=== PATIENT | male | born 1955 | race Caucasian/White ===

== ENCOUNTER → 2016-10-03 | Outpatient (CLI) | payer BC ==
--- NOTE | 2016-10-03 17:11 | PCVCIMAG ---
APPROVED REPORT Exam: Stress Echocardiogram Indication: HTN, Abnormal EKG Stress Nurse: Mikala Wagner RN Status: routine HR: 78 bpm Rhythm: NSR Procedure The patient underwent an Exercise Stress Test using the Jose C Protocol. Blood pressure, heart rate, and EKG were monitored. An Echocardiogram was performed by registered dietetic technician in four stages in quad fashion. At peak stress, four selected images were obtained and placed side by side with resting images for comparison. Stress Test Details Stress Test: Exercise stress testing was performed using a Jose C protocol. HR Resting HR: 78 bpmMax Heart Rate (APMHR): 161 bpm Max HR Achieved: 131 bpmTarget HR (85% APMHR): 136 bpm % of APMHR: 81 HR response to stress: Blunted HR response to stress BP Resting BP: 140/80 mmHg Max BP: 224/80 mmHg ECG Resting ECG: T wave Inversion Clinical Reason for Termination: Maximal effort, leg pain Stress Symptoms: Leg Fatigue Exercise duration: 8 min 09 sec Highest Stage Achieved: Stage 3: 3.4 mph at 14% grade. Exercise capacity: 10.10 METs Overall Exercise Capacity for Age: Normal Pre-Stress Echo The resting Echocardiogram showed normal left ventricular contractility with an estimated Ejection Fraction of about 55-60%. Left ventricular hypertrophy is noted. Post-Stress Echo The stress Echocardiogram showed normal left ventricular contractility with an estimated Ejection Fraction of about 65-70%. Conclusion Clinical Response: Non-ischemic Exercise Capacity: Average Stress ECG Response: Non-ischemic Stress Echo Images: Non-ischemic Other Information Study Quality: Good
== END | disposition home or self-care (01) ==
LOC: PCVCIMAG 14:01
PROVIDERS: ATTEND Internal Medicine Cardiovascular Disease
DX: I10 Essential (primary) hypertension (principal); R94.31 Abnormal electrocardiogram [ECG] [EKG]; I25.10 Atherosclerotic heart disease of native coronary artery without angina pectoris; E78.00 Pure hypercholesterolemia, unspecified; Z82.49 Family history of ischemic heart disease and other diseases of the circulatory system; Z79.82 Long term (current) use of aspirin
CPT/HCPCS: 93325; 93351

== ENCOUNTER → 2017-03-19 | Outpatient (CLI) | payer BC ==
--- NOTE | 2017-03-19 17:47 | PCVCIMAG ---
APPROVED REPORT Exam: Stress Echocardiogram Indication: Hypertension,ABN EKG,EXERTIONAL DISCOMFORT Patient Location: Echo lab Stress Nurse: Vanna Alba RN Room #: 2 Status: routine Ht: 6 ft 1 in HR: 65 bpm BP: 140/68 mmHg Rhythm: NSR Medical History Medical History: HTN Cardiac Risk Factors: HTN Pretest Chest Pain Characteristics: No chest pain Exercise History: Indeterminate Procedure The patient underwent an Exercise Stress Test using the Jose C Protocol. Blood pressure, heart rate, and EKG were monitored. An Echocardiogram was performed by solar field service technician in four stages in quad fashion. At peak stress, four selected images were obtained and placed side by side with resting images for comparison. Stress Test Details Stress Test: Exercise stress testing was performed using a Jose C protocol. HR Resting HR: 65 bpmMax Heart Rate (APMHR): 160 bpm Max HR Achieved: 126 bpmTarget HR (85% APMHR): 136 bpm % of APMHR: 78 Recovery HR: 85 bpm HR response to stress: Blunted HR response to stress *Pt held Bystolic 24 hrs BP Resting BP: 140/68 mmHg Max BP: 208/70 mmHg Recovery BP: 180/70 mmHg ECG Resting ECG: Sinus Rhythm Stress ECG: Sinus Rhythm, nonspecific ST-T abnormalities ST Change: Downsloping ST depression Maximum ST Deviation: 2.3 mm Arrhythmia: Rare pac,pvc Recovery ECG: Sinus Rhythm, nonspecific ST-T abnormalities Recovery Arrhythmia: None Clinical Reason for Termination: Maximal effort Stress Symptoms: none Exercise duration: 9 min sec Highest Stage Achieved: Stage 3: 3.4 mph at 14% grade. Exercise capacity: 10.1 METs Overall Exercise Capacity for Age: Average Angina Score: None Stopped due to knee pain Stress ECG Conclusion The patient exercised according to the Jose C Protocol for 9:00 minutes, achieving a maximum work level of 10.1 METS. The resting heart rate of 65 bpm, kamlesh to a maximal level of 126pm. This value represents 78 % of the maximal, age-predicted heart rate. The resting blood pressure of 140/68 mmHg, kamlesh to a maximum blood pressure of 208/70 mmHg. The exercise was stopped due to fatigue and knee pain. [place] Treadmill Score is -2.5 which is Moderate risk. Pre-Stress Echo The resting Echocardiogram showed normal left ventricular contractility with an estimated Ejection Fraction of about 55-60%. Normal wall motion in all segments on baseline images. Post-Stress Echo The stress Echocardiogram showed normal left ventricular contractility with an estimated Ejection Fraction of about 65-70%. Normal augmentation of wall motion in all segments on post stress images. Clinical No clinical or ECG evidence for ischemia. Conclusion Clinical Response: Non-ischemic Exercise Capacity: Average Stress ECG Response: Indeterminant Stress Echo Images: Non-ischemic No clinical, EKG or echocardiographic evidence for ischemia. No echocardiographic evidence for exercise induced ischemia. Normal stress echocardiogram with maximal exercise stress. Abnormal EKG is consistent with EKGs seen with prior stress tests. Other Information Study Quality: Good <Conclusion> No clinical, EKG or echocardiographic evidence for ischemia. No echocardiographic evidence for exercise induced ischemia. Normal stress echocardiogram with maximal exercise stress. Abnormal EKG is consistent with EKGs seen with prior stress tests.
== END | disposition home or self-care (01) ==
LOC: PCVCIMAG 16:09
PROVIDERS: ATTEND Internal Medicine Cardiovascular Disease
DX: I10 Essential (primary) hypertension (principal); R94.31 Abnormal electrocardiogram [ECG] [EKG]
CPT/HCPCS: 93325; 93351